=== PATIENT | male | born 1940 | race Caucasian/White ===

== ENCOUNTER 2022-01-10 18:01 | Inpatient (IN) | payer MEDICARE, OTHER ==
[~2022-01-10] VITALS: Ht 165.1 cm; Wt 64.4 kg
--- NOTE | 2022-01-10 18:15 | NUR ---
at bedside for evaluation.
--- NOTE | 2022-01-10 19:08 | NUR ---
Patient to go to room 141A in geriatric psych unit.
--- NOTE | 2022-01-10 20:04 | NUR ---
Report given to Awais MCDOWELL
[2022-01-10 20:30] VITALS: BP 124/55
[2022-01-10] MEDS ORDERED: TAMS-3 PO (21:23)
[2022-01-10] MEDS ORDERED: FINA5TAB3 PO (21:23)
[2022-01-10] MEDS ORDERED: LISI20TA30 PO (21:23)
[2022-01-10] MEDS ORDERED: LORAZEPAM 1 MG TABLET PO PRN (21:30)
[2022-01-10] MEDS ORDERED: ZOLPIDEM 5 MG TABLET PO PRN (21:30)
[2022-01-10] MEDS ORDERED: MAG HYDROX/AL HYDROX/SIMETH 30 ML LIQUID UDC PO PRN (21:30)
[2022-01-10] MEDS ORDERED: MAGNESIUM HYDROXIDE 30 ML LIQUID UDC PO PRN (21:30)
--- NOTE | 2022-01-10 21:30 | NUR ---
ADMISSION NOTE: AT APPROX 2020, ADMITTED 81 YEARS OLD MALE TO [facility] ON A 5150 FOR GD. PER MEDICAL RECORDS, PATIENT IS HOMELESS. HE WAS BROUGHT TO [facility] FOR MEDICAL CLEARANCE D/T MULTIPLE SYMPTOMS. PT IS HEARING VOICES. PER HOLD, PT ASKED SOMEONE TO CALL 911 BECAUSE ILL AND HE ALSO REPORTED HEARING A GROUP OF WOMEN TALKING ALL THE TIME TO HIS RIGHT EAR. HE REPORTED MEMORY LOSS THAT OCCURRED WHEN HE CAME IN CONTACT WITH AN INDIVIDUAL FROM [employer] WHOM HE CAN COMMUNICATE WITH ALIENS. HE ALSO STATED THAT HE FOUND A PAPER ON HOW TO COMMUNICATE WITH CATS AND DOGS. PATIENT HAS NO SUPPORT SYSTEM AND HE IS UNABLE TO FORMULATE A PLAN TO MEET HIS BASIC NEEDS. HIS HOLD WILL TOMORROW AT 1900. UPON ADMISSION, PATIENT IS A/O X 2 TO 3. [place] SPEAKER ONLY. HE IS CALM AND COOPERATIVE WITH ADMISSION PROCESSES. HE IS ABLE TO AMBULATE WITH STEADY GAIT AND ABLE TO VERBALIZED HIS FEELINGS. PATIENT STATED, "I DON'T KNOW WHY I AM HERE BUT I KNOW I HEAR VOICES", PATIENT DENIED SI/HI. HE STATED, "I AM NOT HOMELESS, I LIVE WITH A FRIEND INSIDE A STORE". PATIENT WAS NOTED DELUSIONAL, HAVING AH AND VH. HE STATED THAT, "I SEE ALIENS". HE IS AN UNRELIABLE HISTORIAN. HIS ADVISEMENT WAS GIVEN, PATIENT REFLECTS WHAT IS WRITTEN ON THE HOLD. HE WAS ALSO GIVEN THE BOOKLET OF PATIENT'S RIGHTS (IN [place]). 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 HE HAS INFORMED OF THE UNIT RULES, ROOM AND HIS ROOMMATE. WE WILL CONTINUE WITH Q15 MIN CHECKS.
--- NOTE | 2022-01-11 06:47 | NUR ---
GPS: Pt.slept 7 hrs.last night. Showered just now with minimal assistance from staff. Remains delusional-talking bout aliens and that he can communicate with them. Re-directed prn. Safe environment provided. Will continue to monitor.
[2022-01-11 07:26] VITALS: BP 116/58
--- NOTE | 2022-01-11 07:33 | NUR ---
Patient's niece Jessica was notified of patient's admissions via phone call at [phone]. per Jessica, patient is not homeless, he lives with a friend who has a mobile home. Jessica stated she is in [place] on vacations and she will be back next Tuesday. will let SW know.
[2022-01-11] MEDS: DIVALPROEX SPRINKLE 125 MG CAP.SPRINK PO SCH ×2 (09:53→20:45)
[2022-01-11] MEDS: risperiDONE 0.5 MG TABLET PO SCH ×2 (09:53→17:12)
--- NOTE | 2022-01-11 10:06 | NUR ---
GPS: Nursing Notes: 5250 [facility] Request: Staff give a copy of 5250 to patient, Staff explained 5250. Staff informed patient that a certification review hearing will be held within four days and patient's rights advocate will call to provide assistance and preparing him for the hearing. The court has been notified of 5250 via [facility] portal on this day.
[2022-01-11 16:10] VITALS: BP 108/62
--- NOTE | 2022-01-11 16:10 | NUR ---
GPS: Nursing Notes: Thought Disorder: Patient is awake and responding to his name, stated "I hear women voices in my right ear, and I can hear you in my left ear..", internally preoccupied, needs prompting to participate in therapeutic groups, isolative and withdrawn in his room at times, interactive with his roommate, unable to formulate a viable plan for self care, continue to monitor for safety, continue with treatment plan.
[2022-01-11 19:42] VITALS: BP 116/56
--- NOTE | 2022-01-12 04:58 | NUR ---
Received patient at start of the shift in bed. Medication compliant, preoccupied by internal stimulation. Via physician office rep, denied SI. Oriented x2. Cooperative, but wants to stay in the room all the time. Refused to come out for snack. Affect artificially bright. Safety stratiges are in place. Sleeping most of the night. Frequent rounding done .
[2022-01-12 07:18] LABS: HEMATOCRIT 35.3 % (36.7-47.1); MEAN CORPUSCULAR HEMOGLOBIN 32.4 uug (23.8-33.4); MEAN CORPUSCULAR VOLUME 92.8 fL (73.0-96.2); PLATELET COUNT (AUTO) 189 K/uL (152-348)
[2022-01-12 07:23] LABS: CREATININE 1.1 mg/dL (0.6-1.3); MAGNESIUM 1.8 mg/dL (1.8-2.4); PHOSPHOROUS 3.3 mg/dL (2.5-4.9); POTASSIUM 4.1 mmol/L (3.5-5.1)
[2022-01-12 07:32] VITALS: BP 127/66
[2022-01-12 07:35] LABS: THYROID STIMULATING HORMONE 2.264 mIU/mL (0.358-3.740)
[2022-01-12] MEDS ORDERED: TAMSULOSIN HCL 0.4 MG CAP.SR.24H PO SCH (09:00)
[2022-01-12] MEDS: DIVALPROEX SPRINKLE 125 MG CAP.SPRINK PO SCH ×2 (09:04→20:01)
[2022-01-12] MEDS: FINASTERIDE 5 MG TABLET PO SCH (09:06)
[2022-01-12] MEDS: LISINOPRIL 20 MG TABLET PO SCH (09:06)
[2022-01-12] MEDS: risperiDONE 1 MG TABLET PO SCH ×2 (09:08→17:21)
--- NOTE | 2022-01-12 11:47 | NUR ---
NITHYA Initial Discharge Note: Pt currently resides at a trailor home located at [address] [place] [address]. ([phone]). Per pt, he does not have any family contact at this time. It is unclear at this time if pt will return to his trailor home or discharge to a temporary fdc facility. NITHYA will continue to work with pt, family and MD to ensure a safe and proper discharge plan.
--- NOTE | 2022-01-12 15:00 | NUR ---
Patient is cooperative with care and compliant with medications, talkative, participating in group activities. Reassurance given. Fall and safety precautions implemented.
[2022-01-12 15:59] VITALS: BP 112/56
[2022-01-12 19:50] VITALS: BP 132/56
[2022-01-12] MEDS: ACETAMINOPHEN 325 MG TABLET PO PRN (20:01)
--- NOTE | 2022-01-12 20:30 | NUR ---
Received patient in his room, he is noted awake a/o x 2 to 3. he is noted anxious but he is easily redirectable. Patient continue hearing voices. He stated, "I hear voices but they don't talk to me, they talk to each others". patient is reassured for his safety. safety and fall precautions are in place. He was given PO fluids and snacks. V/S are stable. pt in no distress. will continue to monitor.
[2022-01-13] MEDS: FINASTERIDE 5 MG TABLET PO SCH (08:45)
[2022-01-13] MEDS: DIVALPROEX SPRINKLE 125 MG CAP.SPRINK PO SCH ×2 (08:45→20:27)
[2022-01-13] MEDS: risperiDONE 1 MG TABLET PO SCH ×2 (08:45→17:04)
[2022-01-13] MEDS: LISINOPRIL 20 MG TABLET PO SCH (08:46)
[2022-01-13 16:00] VITALS: BP 133/64
[2022-01-13] MEDS: IBUPROFEN 400 MG TABLET PO PRN (17:04)
[2022-01-13 20:04] VITALS: BP 109/56
[2022-01-13] MEDS: TAMSULOSIN HCL 0.4 MG CAP.SR.24H PO SCH (20:27)
--- NOTE | 2022-01-14 06:42 | NUR ---
GPS: Pt.slept 7 hrs.last night. Continues to hear voices. Re-directed and re-assured prn. No increased agitation noted. Encouraged to attend activities and participate. Safe environment provided.
[2022-01-14 07:30] VITALS: BP 112/62
[2022-01-14] MEDS: risperiDONE 1 MG TABLET PO SCH ×2 (08:38→17:29)
[2022-01-14] MEDS: LISINOPRIL 20 MG TABLET PO SCH (08:38)
[2022-01-14] MEDS: DIVALPROEX SPRINKLE 125 MG CAP.SPRINK PO SCH ×2 (08:39→20:29)
[2022-01-14] MEDS: FINASTERIDE 5 MG TABLET PO SCH (08:39)
--- NOTE | 2022-01-14 10:36 | NUR ---
SW Family Contact: Pt continues to state he does not have any family contact at this time. Pt stated he has a brother and a nephew in his trailer home. Pt clarified he does not have a way to contact them.
--- NOTE | 2022-01-14 15:09 | NUR ---
Patient is pleasant, sociable, calm, confused at times, compliant with medications. Patient does not participate in group activities, but interacts with his roommate who is also Yoruba speaker. A/O X 2 to person, place. Patient is encourage to verbalize concerns. Fall and safety precautions implemented.
[2022-01-14 16:00] VITALS: BP 106/54
[2022-01-14 20:04] VITALS: BP 114/59
[2022-01-14] MEDS: TAMSULOSIN HCL 0.4 MG CAP.SR.24H PO SCH (20:29)
--- NOTE | 2022-01-14 21:26 | NUR ---
GPS: Remains compliant with his meds.care and diet. No aggressive behavior noted. Continues to hear voices. Re-assured prn. Safe environment provided.
[2022-01-15 07:30] VITALS: BP 113/59
[2022-01-15] MEDS ORDERED: risperiDONE 1 MG TABLET PO SCH (09:00)
[2022-01-15] MEDS: FINASTERIDE 5 MG TABLET PO SCH (09:23)
[2022-01-15] MEDS: DIVALPROEX SPRINKLE 125 MG CAP.SPRINK PO SCH ×2 (09:24→20:46)
[2022-01-15] MEDS: LISINOPRIL 20 MG TABLET PO SCH (09:24)
[2022-01-15] MEDS: risperiDONE 2 MG TABLET PO SCH ×2 (09:53→16:54)
--- NOTE | 2022-01-15 15:48 | NUR ---
NITHYA Family Contact: SW contacted pt's niece, Lorelei ([phone]) and left a voicemail for a call back regarding pt's discharge plan.
[2022-01-15 16:49] VITALS: BP 124/64
[2022-01-15] MEDS: ACETAMINOPHEN 325 MG TABLET PO PRN (16:54)
[2022-01-15] MEDS: TAMSULOSIN HCL 0.4 MG CAP.SR.24H PO SCH (20:46)
[2022-01-15 21:09] VITALS: BP 100/52
[2022-01-16 07:30] VITALS: BP 99/49
[2022-01-16] MEDS: DIVALPROEX SPRINKLE 125 MG CAP.SPRINK PO SCH ×2 (08:07→20:38)
[2022-01-16] MEDS: risperiDONE 2 MG TABLET PO SCH ×2 (08:07→17:07)
[2022-01-16] MEDS: FINASTERIDE 5 MG TABLET PO SCH (08:07)
[2022-01-16] MEDS: LISINOPRIL 20 MG TABLET PO SCH (08:14)
[2022-01-16 16:00] VITALS: BP 113/51
--- NOTE | 2022-01-16 17:40 | NUR ---
Gps/Meat Scrubber- Had been participating in his group activity this am, compliant with routine meds, had been cooperative with staff, redirectable. making his simple needs known.
[2022-01-16 20:00] VITALS: BP 137/57
[2022-01-16] MEDS: TAMSULOSIN HCL 0.4 MG CAP.SR.24H PO SCH (20:38)
[2022-01-17] MEDS: ACETAMINOPHEN 325 MG TABLET PO PRN (06:04)
[2022-01-17] MEDS: DIVALPROEX SPRINKLE 125 MG CAP.SPRINK PO SCH ×2 (08:39→20:53)
[2022-01-17] MEDS: FINASTERIDE 5 MG TABLET PO SCH (08:40)
[2022-01-17] MEDS: risperiDONE 2 MG TABLET PO SCH ×2 (08:40→16:27)
[2022-01-17] MEDS: LISINOPRIL 20 MG TABLET PO SCH (08:40)
[2022-01-17 08:51] VITALS: BP 133/64
[2022-01-17 16:16] VITALS: BP 106/58
[2022-01-17] MEDS: IBUPROFEN 400 MG TABLET PO PRN (18:24)
[2022-01-17 20:00] VITALS: BP 128/60
[2022-01-17] MEDS: TAMSULOSIN HCL 0.4 MG CAP.SR.24H PO SCH (20:53)
--- NOTE | 2022-01-18 03:58 | NUR ---
GPS NOTES: Patient in his room at the start of the shift, A&0x2, Isolative in his room, only interacts when engaged. Can make simple requests and goes back to his room. Med compliant. Sleeping well during shift. No distress noted. Frequent monitoring observed.
[2022-01-18] MEDS: ACETAMINOPHEN 325 MG TABLET PO PRN ×2 (04:59→12:13)
[2022-01-18] MEDS: DIVALPROEX SPRINKLE 125 MG CAP.SPRINK PO SCH ×3 (08:40→17:29)
[2022-01-18] MEDS: FINASTERIDE 5 MG TABLET PO SCH (08:40)
[2022-01-18] MEDS: risperiDONE 2 MG TABLET PO SCH ×3 (08:40→17:29)
[2022-01-18] MEDS: LISINOPRIL 20 MG TABLET PO SCH (08:40)
[2022-01-18] MEDS ORDERED: DIVALPROEX SPRINKLE 125 MG CAP.SPRINK PO SCH (09:00)
--- NOTE | 2022-01-18 12:08 | NUR ---
SNF Referral: [employer] faxed patient's referral packet including: History and Physical, Consultation, Progress Notes, Medication List and Labs to the following facilities for review and possible prison placement: [address] [address] ([phone]) F: [phone].
--- NOTE | 2022-01-18 13:12 | NUR ---
SW Discharge Update: Martha Wilson ([phone]) from [place] [address] ([phone]) informed this automobile service writer that pt is accepted to their facility upon discharge from [facility].
--- NOTE | 2022-01-18 13:15 | NUR ---
GPS: Nursing Notes: Thought Disorder: Patient is awake and responding to his name, need prompting to participate in therapeutic groups, internally preoccupied, stated "I am hearing voices in my right ear.... Women voices...But Yessica Lodi know about my condition..", minimal participation in therapeutic, isolative and withdrawn in his room, no interactions with peers, A/Ox 2-3, unable to formulate a viable plan for self care, continue to monitor for safety, continue with treatment plan.
--- NOTE | 2022-01-18 13:23 | NUR ---
Firearms Report: Stack Yield Engineer completed and submitted a [employer] firearms report for 5150 grave disability certifications. A copy of report has been placed in patient chart.
[2022-01-18 16:28] VITALS: BP 98/50
[2022-01-18] MEDS: IBUPROFEN 400 MG TABLET PO PRN (17:52)
[2022-01-18] MEDS: TAMSULOSIN HCL 0.4 MG CAP.SR.24H PO SCH (20:05)
[2022-01-18 20:35] VITALS: BP 100/51
--- NOTE | 2022-01-19 06:54 | NUR ---
GPS: Pt.slept for 9 hrs.last night. Continues to hear voices on his right ear but less per pt. No aggressive behavior noted. Re-directed prn.
[2022-01-19 07:30] VITALS: BP 138/62
[2022-01-19] MEDS: DIVALPROEX SPRINKLE 125 MG CAP.SPRINK PO SCH ×3 (08:29→16:26)
[2022-01-19] MEDS: risperiDONE 2 MG TABLET PO SCH ×3 (08:29→16:22)
[2022-01-19] MEDS: FINASTERIDE 5 MG TABLET PO SCH (08:29)
[2022-01-19] MEDS: LISINOPRIL 20 MG TABLET PO SCH ×2 (08:33→20:27)
--- NOTE | 2022-01-19 12:58 | NUR ---
GPS: Nursing Notes: Thought Disorder: Patient is awake and responding to his name, unkempt appearance, internally preoccupied, stated "Yes, I am hearing women voices in my right ear.... But in my left ear, I hear you...", believes that is getting better, compliant with her medications, unable to formulate a viable plan for self care, continue to monitor for safety, continue with treatment plan.
[2022-01-19] MEDS: ACETAMINOPHEN 325 MG TABLET PO PRN ×2 (14:42→20:33)
[2022-01-19 16:32] VITALS: BP 112/53
[2022-01-19 20:05] VITALS: BP 132/56
[2022-01-19] MEDS: TAMSULOSIN HCL 0.4 MG CAP.SR.24H PO SCH (20:26)
[2022-01-20 07:30] VITALS: BP 105/53
[2022-01-20] MEDS: risperiDONE 2 MG TABLET PO SCH ×3 (08:45→17:16)
[2022-01-20] MEDS: FINASTERIDE 5 MG TABLET PO SCH (08:45)
[2022-01-20] MEDS: DIVALPROEX SPRINKLE 125 MG CAP.SPRINK PO SCH ×3 (08:45→17:16)
[2022-01-20] MEDS: LISINOPRIL 20 MG TABLET PO SCH ×2 (08:46→20:50)
[2022-01-20] MEDS: ACETAMINOPHEN 325 MG TABLET PO PRN (09:08)
[2022-01-20] MEDS: IBUPROFEN 400 MG TABLET PO PRN (14:25)
[2022-01-20 16:00] VITALS: BP 123/55
--- NOTE | 2022-01-20 18:06 | NUR ---
Remains withdrawn and isolated in room. Contracted for safety. Denies SI. Pt complained of (L) lateral foot pain. Upon assessment, skin was intact and no redness nor irritation noted. Will continue to monitor.
[2022-01-20 20:12] VITALS: BP 117/47
[2022-01-20] MEDS: TAMSULOSIN HCL 0.4 MG CAP.SR.24H PO SCH (20:50)
[2022-01-21 07:30] VITALS: BP 127/56
--- NOTE | 2022-01-21 09:12 | NUR ---
NITHYA Discharge Note: Pt will be discharged to [facility] located at [address] [place] [address] ([phone]) via Ambulance transportation at 11AM. NITHYA spoke with admin coordinator, Martha ([phone]) at the facility who states they are ready to accept the patient today. Pt is aware and agreeable with discharge plan. NITHYA contacted pts Lorelei byrd ([phone]) twice and left a voicemail regarding pts discharge plan. Pt is aware. Pt does not have other family contact information at this time. Pt is alert and oriented x1. Pt is unable to plan for self-care at this time. However, pt is willing to accept care at [facility]. Pt denies any suicidal or homicidal ideation. Pt will follow-up at the facility with Psychiatrist, Dr. Monroy ([phone]) and Livestock Caretaker, Dr. Hayes. Pt presents with calm mood and congruent affect. Pt is cooperative with care. PHARMACY: [facility] ([phone]) [address] [facility] [address].
[2022-01-21] MEDS: DIVALPROEX SPRINKLE 125 MG CAP.SPRINK PO SCH (09:20)
[2022-01-21] MEDS: FINASTERIDE 5 MG TABLET PO SCH (09:21)
[2022-01-21 09:27] VITALS: BP 127/56
[2022-01-21] MEDS: LISINOPRIL 20 MG TABLET PO SCH (09:27)
[2022-01-21] MEDS: risperiDONE 2 MG TABLET PO SCH (09:27)
--- NOTE | 2022-01-21 11:07 | NUR ---
Gps/Drilling Plant Operator- Called [facility]. SNF , was able to talked to Samson Mitchell, TMS/medication records was faxed as requested. Called facility couple of times to give report . was finally able to get hold of Vivi, Nurse was able to gieve report, informed patient has [employer] money of $ 405.00 returning back to patient . Patient was well informed of his discharge plan. applications support analyst time arranged for 1100. Patient in good spirit, no complaints noted.
--- NOTE | 2022-01-21 11:42 | NUR ---
Gps/Port Patrol Officer- Discharged to [facility] via ambulance, patient was in good spirit, was well informed of his discharged with translator deaf, verbalized understanding. All valuables/belongings given back to patient ($405.00 + ID cards , credit cards) Discharged to [facility]. via ambulance, no complaints noted.
== END 2022-01-21 11:48 | DRG 885 ==
LOC: ER 18:05 → GPS 20:09
PROVIDERS: ADMIT Psychiatry & Neurology Psychiatry; ATTEND Student in an Organized Health Care Education/Training Program
DX: F29 Unspecified psychosis not due to a substance or known physiological condition (principal); F03.918 Unspecified dementia, unspecified severity, with other behavioral disturbance; G89.29 Other chronic pain; I10 Essential (primary) hypertension; N40.0 Benign prostatic hyperplasia without lower urinary tract symptoms; F25.0 Schizoaffective disorder, bipolar type; Z20.822 Contact with and (suspected) exposure to COVID-19
CPT/HCPCS: 36415; 71045; 80164; 83735; 84100; 84443; 85025; 93005; 97161; A4663